=== PATIENT | male | born 1960 | race Caucasian/White ===

== ENCOUNTER 2018-04-08 08:52 | Inpatient (IN) | payer BC ==
--- NOTE | 2018-04-08 09:18 | PDOC ---
History of Present Illness - General Chief Complaint: Revisit, Lab Variance Stated Complaint: LAB VARIANCE History Source: Patient - History of Present Illness Timing/Duration: reports: resolved prior to arrival Past History - Past Medical History Allergies/Adverse Reactions: Allergies Allergy/AdvReac Type Severity Reaction Status Date / Time No Known Allergies Allergy Verified 04/08/18 09:03 Home Medications: Ambulatory Orders Atorvastatin Ca [Lipitor] 10 mg PO HS 04/08/18 Omeprazole Magnesium [Prilosec Otc] 20 mg PO DAILY 04/08/18 COPD: No GI Disorders: Yes (GERD) Hypercholesterolemia: Yes - Immunization History Immunization Up to Date: Yes - Suicide/Smoking/Psychosocial Hx Smoking History: Never smoked Hx Alcohol Use: No Drug/Substance Use Hx: No Review of Systems - Review of Systems Constitutional: No: Chills, Fever, Unintentional Wgt. Loss ABD/GI: No: Abdominal Distended, Blood Streaked Bowels, Nausea, Rectal Bleeding , Vomiting, Abdominal cramping, Tarry Stools : No: Dysuria, Flank Pain, Hematuria *Physical Exam - Vital Signs Last Vital Signs Temp Pulse Resp BP Pulse Ox 98.2 F 74 16 136/88 97 04/08/18 09:00 04/08/18 09:00 04/08/18 09:00 04/08/18 09:00 04/08/18 09:00 - Physical Exam General Appearance: Yes: Appropriately Dressed. No: Apparent Distress HEENT: positive: Normal Voice. negative: Scleral Icterus (R), Scleral Icterus ( L) Gastrointestinal/Abdominal: positive: Normal Bowel Sounds, Soft. negative: Tender, Distended, Guarding, Rebound, Hepatomegaly, Spleenomegaly Musculoskeletal: negative: CVA Tenderness Integumentary: positive: Dry, Warm Neurologic: positive: Fully Oriented, Alert, Normal Mood/Affect Moderate Sedation - Procedure Monitoring Vital Signs: Procedure Monitoring Vital Signs Temperature 98.2 F 04/08/18 09:00 Pulse Rate 74 04/08/18 09:00 Respiratory Rate 16 04/08/18 09:00 Blood Pressure 136/88 04/08/18 09:00 O2 Sat by Pulse Oximetry (%) 97 04/08/18 09:00 ED Treatment Course - LABORATORY CBC & Chemistry Diagram: 04/08/18 09:35 04/08/18 09:35 Medical Decision Making - Medical Decision Making 04/08/18 09:13 58 yo M, h/o HLD on lipitor, GERD on prilosec daily, here for evaluation after pt received a call from that his LFTs were abnl. Pt states he developed worsening of his epigastric pain w/ intermittent n/v and was seen 3 times at an . States the first time he was told to take mylanta and increased prilosec dose (dose previously decreased by PMD). States nausea still persisted and felt dehydrated 2/2 decreased po intake so returned to where he was given IVF, antiemetic and tx for UTI, currently on abx (does not remember name-only c/o urinary freq, since improved). Pt returned to 2 days ago for a "check up" and had labs drawn. States he received email this am that he had some abnl LFTs. Pt states last EGD was >15 years ago and was normal. Denies melena or BRBPR. No known liver disease and no unexplained weight loss. Does admit to excessive drinking in past where he felt " a need to cut down". Occasionally drinks now per pt. pt resides in [place], in [place] for the holidays See exam Ab/nl LFTs in setting of upper abd pain in pt w/ possible h/o ETOH abuse, GERD Per records, ALT 268, AST 163, bili 4.4, alk phos 153 and lipase 109 at 2 days ago On prilosec, no sxs currently No unexplained weight loss Stable w/ unremarkable exam today -labs and possible US vs CT 04/08/18 13:38 CT read as possible acute matilda, will get US at this time. Pt remains asx 04/08/18 16:19 US read as multiple gallstones w/ GBW thickness, otherwise no e/o acute matilda. LFTs mildly elevated w/ Tbili of 1.5. Case d/w Dr Allen of surgery who suspects cholodocholiathises. Rec admission for GI c/s for MRCP and ERCP. MD to come see pt 04/08/18 17:06 Case d/w Dr Amaya, will come evaluate pt. Aware MRCP pending 04/08/18 17:[address] Amaya of GI who rec HIDA scan over MRCP *DC/Admit/Observation/Transfer Diagnosis at time of Disposition: Common bile duct calculus - Discharge Dispostion Condition at time of disposition: Fair Decision to Admit order: Yes - Referrals - Patient Instructions - Post Discharge Activity
--- NOTE | 2018-04-08 09:44 | PDOC ---
*Physical Exam - Vital Signs Last Vital Signs Temp Pulse Resp BP Pulse Ox 98.2 F 74 16 136/88 97 04/08/18 09:00 04/08/18 09:00 04/08/18 09:00 04/08/18 09:00 04/08/18 09:00 ED Treatment Course - LABORATORY CBC & Chemistry Diagram: 04/09/18 06:00 04/09/18 06:00 Medical Decision Making - Medical Decision Making 04/08/18 09:43 Pt seen by Midlevel Provider under my direct supervision Pt presents with LFT abnormality and upper abdominal pain Ancillary studies reviewed - concerning for choledocolithiasis Laboratory Tests 04/08/18 09:35 Total Bilirubin 1.5 H AST 80 H ALT 236 H Lipase [address] Allen I agree with plan as outlined by Midlevel Provider to admit 04/08/18 10:56 04/08/18 10:57 *DC/Admit/Observation/Transfer Diagnosis at time of Disposition: Common bile duct calculus - Discharge Dispostion Condition at time of disposition: Fair - Referrals - Patient Instructions - Post Discharge Activity
[2018-04-08 09:50] LABS: BASO % 0.6 % (0-2.0); EOS % 6.6 % (0-4.5); HEMATOCRIT 38.7 % (35.4-49); HEMOGLOBIN 12.8 GM/dL (11.7-16.9); LYMPH % 13.1 % (8-40); MCH 28.5 pg (25.7-33.7); MEAN CELL VOLUME 86.2 fl (80-96); MEAN PLT VOLUME 7.5 fl (7.5-11.1); MONO % 11.2 % (3.8-10.2); NEUT % 68.5 % (42.8-82.8); PLATELET COUNT 254 K/MM3 (134-434); RBC 4.48 M/mm3 (4.00-5.60); RDW 14.3 % (11.9-15.9); WHITE BLOOD COUNT 6.3 K/mm3 (4.0-10.0)
[2018-04-08 09:58] LABS: URINE APPEARANCE CLEAR; URINE BILIRUBIN NEGATIVE (<2.0 mg/dL); URINE COLOR AMBER; URINE GLUCOSE (UA) NEGATIVE (NEGATIVE); URINE KETONE NEGATIVE (NEGATIVE); URINE LEUK ESTERASE NEGATIVE (NEGATIVE); URINE NITRITE NEGATIVE (NEGATIVE); URINE PROTEIN 1+ (NEGATIVE); URINE UROBILINOGEN NEGATIVE mg/dL (0.2-1.0)
[2018-04-08 10:23] LABS: ALBUMIN 3.6 g/dl (3.4-5.0); ALK PHOS 215 U/L (45-117); ANION GAP 6 MMOL/L (8-16); BILIRUBIN,TOTAL 1.5 mg/dL (0.2-1); BLOOD UREA NITROGEN 4 mg/dL (7-18); CALCIUM 8.3 mg/dL (8.5-10.1); CHLORIDE 105 mmol/L (98-107); CO2 28 mmol/L (21-32); CREATININE 0.8 mg/dL (0.55-1.3); GLUCOSE,RANDOM 97 mg/dL (74-106); LIPASE 428 U/L (73-393); POTASSIUM 4.1 mmol/L (3.5-5.1); SGOT/AST 80 U/L (15-37); SGPT/ALT 236 U/L (13-61); SODIUM 139 mmol/L (136-145); TOT PROT 7.1 g/dl (6.4-8.2)
[2018-04-08 10:24] LABS: URINE MUCUS FEW
--- NOTE | 2018-04-08 16:08 | CONSULT ---
Consult Consult Specialty:: General Surgery Reason for Consultation:: Cholelithiasis, R/o Choledocholithiasis, passed a stone - History of Present Illness Chief Complaint: abdominal pain History of Present Illness: 58yo male PMH HLD on lipitor, GERD presents for evaluation at the urging of urgent care provider. Mr. Fitzpatrick reports epigastric discomfort starting 03/29 which was worse at nights, while on vacation in [place]. He atrributed symptoms to GERD and increased his dose of prilosec, which had little effect on relieving his sx. On 04/02, he returned to [facility] and noted that his symptoms had progressed where his pain now 10/10 and he was unable to sleep. He went to [facility] and was told to take mylanta TID in addition to his increased dose of PPI. Patient went hiking on 04/04 and reports his pain became so severe, "he thought he was dying". He endorses b/l flank pain and abd pain. He once again sought evaluation at urgent care and at this visit His urine was sampled at the same visit and he was informed that he had a UTI and was prescribed cipro 500mg BID x 1week, in addition to routine labs being drawn. we were asked to evaluate. - History Source History Provided By: Patient, Medical Record Limitations to Obtaining History: No Limitations - Alcohol/Substance Use Hx Alcohol Use: No - Smoking History Smoking history: Never smoked - Social History ADL: Independent Place of : [facility] Home Medications - Allergies Allergies/Adverse Reactions: Allergies Allergy/AdvReac Type Severity Reaction Status Date / Time No Known Allergies Allergy Verified 04/08/18 09:03 - Home Medications Home Medications: Ambulatory Orders Atorvastatin Ca [Lipitor] 10 mg PO HS 04/08/18 Omeprazole Magnesium [Prilosec Otc] 20 mg PO DAILY 04/08/18 Review of Systems - Review of Systems Constitutional: denies: Chills, Fever Eyes: denies: Blurred Vision, Recent Change in Vision HENT: denies: Difficult Swallowing, Throat Pain Neck: denies: Pain on Movement, Tenderness Cardiovascular: denies: Chest Pain, Palpitations Respiratory: denies: Cough, SOB Gastrointestinal: reports: Abdominal Pain. denies: Constipation, Diarrhea Genitourinary: denies: Dysuria, Flank Pain Breasts: reports: No Symptoms Reported. denies: Pain Musculoskeletal: denies: Muscle Pain, Muscle Weakness Integumentary: denies: Eczema, Pallor, Rash Neurological: denies: Seizure, Syncope Endocrine: denies: Unexplained Weight Gain, Unexplained Weight Loss Hematology/Lymphatic: denies: Easily Bruised, Excessive Bleeding Psychiatric: denies: Anxiety, Depression Physical Exam Vital Signs: Vital Signs Temperature 98.2 F 04/08/18 09:00 Pulse Rate 74 04/08/18 09:00 Respiratory Rate 16 04/08/18 09:00 Blood Pressure 136/88 04/08/18 09:00 O2 Sat by Pulse Oximetry (%) 97 04/08/18 09:00 Vital Signs Period Temp Pulse Resp BP Sys/Murdock Pulse Ox Last 24 Hr 98.4 F-98.9 F 55-67 16-20 118-133/72-88 98-98 Constitutional: Yes: Well Nourished, No Distress, Calm Eyes: Yes: Conjunctiva Clear, EOM Intact HENT: Yes: Atraumatic, Normocephalic Neck: Yes: Supple, Trachea Midline Cardiovascular: Yes: S1, S2 Respiratory: Yes: Regular, CTA Bilaterally Gastrointestinal: Yes: Normal Bowel Sounds, Soft, Tenderness. No: Tenderness, Epigastrium, Tenderness, Rebound ...Rectal Exam: Yes: Sphincter Tone Normal. No: Mass Renal/: No: CVA Tenderness - Left, CVA Tenderness - Right Musculoskeletal: No: Muscle Pain, Muscle Weakness Extremities: No: Cool, Cyanosis Edema: No Peripheral Pulses WNL: Yes Integumentary: No: Jaundice, Pressure Ulcer Neurological: Yes: Alert, Oriented Psychiatric: Yes: Alert, Oriented Labs: CBC, BMP 04/08/18 09:35 04/08/18 09:35 Imaging - Results Cat Scan: Report Reviewed, Image Reviewed (cholelithiais and gallbladder polyps) Ultrasound: Report Reviewed, Image Reviewed (GB wall thickening) MRI: Pending Other: Report Reviewed, Image Reviewed (HIDA positive no filling) Problem List - Problems (1) Acute gallstone pancreatitis Assessment/Plan: 58yo male with acute gallstone pancreatitis, cholelithiaasis, choledocholithiasis probably passsed a stone NPO and IVF hydration IV antibiotics Trend labs MRCP GI evaluation for ERCP Medical clearence for surgery Laparoscopic cholecystctetomy 04/10/18 Discussed with patient risks, benefits and alternatives of laparoscopic possible open cholecystectomy, including but not limited to bleeding, infection , injury to adjacent structures, leak or injury, intraabdominal abscess, incisional hernia, need for further procedures, ; alternatives include antibiotics, delayed or no surgery - risks of this include failure of nonoperative therapy, perforation, sepsis, recurrence, . Patient desires to proceed with operation - will take to OR for above. Informed consent signed for same. Thank you for the opportunity to participate in the care of this patient. Code(s): K85.10 - BILIARY ACUTE PANCREATITIS WITHOUT NECROSIS OR INFECTION (2) Cholelithiasis Code(s): K80.20 - CALCULUS OF GALLBLADDER W/O CHOLECYSTITIS W/O OBSTRUCTION Qualifiers: Cholelithiasis location: gallbladder Cholecystitis presence: without cholecystitis Biliary obstruction: without biliary obstruction Qualified Code(s): K80.20 - Calculus of gallbladder without cholecystitis without obstruction (3) Choledocholithiasis Code(s): K80.50 - CALCULUS OF BILE DUCT W/O CHOLANGITIS OR CHOLECYST W/O OBST (4) Abdominal pain in male Code(s): R10.9 - UNSPECIFIED ABDOMINAL PAIN (5) Common bile duct calculus Code(s): K80.50 - CALCULUS OF BILE DUCT W/O CHOLANGITIS OR CHOLECYST W/O OBST
[2018-04-08] MEDS ORDERED: SODIUM CHLORIDE 1,000 ML IV STA (17:55)
--- NOTE | 2018-04-08 19:45 | CONS ---
DATE OF CONSULTATION: 04/08/2018 The patient is a 58-year-old man with a past medical history of hyperlipidemia and reflux disease on PPI therapy who is originally from [place] and is in town visiting who states that over the past week he has been having intermittent dyspeptic symptoms with epigastric-associated pain. He attributed his symptoms secondary to his reflux disease. His symptoms did not improve on Mylanta and Prilosec. He was seen at the urgent care center and labs were taken as well as a UA. He received antibiotics for a urinary tract infection and was called back for abnormal liver tests. He, therefore, came to the emergency room for further evaluation. He had an upper endoscopy over 15 years ago and states there were no findings of any ulcers. He currently denies any nausea, vomiting, hematemesis, melena, hematochezia, or weight loss. PAST MEDICAL HISTORY: As listed in the HPI. ALLERGIES: No known drug allergies. SOCIAL HISTORY: Does not drink or smoke. FAMILY HISTORY: No history of GI or gynecological malignancy. SURGICAL HISTORY: Notable for multiple orthopedic surgeries including rotator cuff repair and a hip replacement. PHYSICAL EXAMINATION: Vital Signs: Temperature 98, pulse 74, respiratory rate 12, blood pressure 130/88, pulse oximetry 97% on room air. General: No acute distress. HEENT: Anicteric sclerae. Cardiovascular: S1, S2. Regular rate and rhythm. Lungs: Bilaterally clear to auscultation. Abdomen: Tender in the epigastric area and right upper quadrant without rebound or guarding. There was no positive Linares's sign. Extremities: No edema. LABORATORY: White blood cell count is 6.3, hemoglobin 12, hematocrit 38, MCV 86, platelet count 254. Sodium 139, potassium 4.1, BUN of 4, creatinine 0.8. Total bilirubin is 1.5, AST 80, ALT 236, alkaline phosphatase of 215, lipase of 428. Urine has 1+ protein and 1% blood, otherwise negative. He had an ultrasound performed in the emergency room, which revealed thick walled gallbladder with small calculi and a 4-mm polyp. No sonographic evidence of acute cholecystitis. HIDA scan was suggested. IMPRESSION: Dyspepsia, right upper quadrant abdominal pain, thickening of the gallbladder wall, and a mild transaminitis. These findings may be secondary to acute cholecystitis. He may or may not have choledocholithiasis. I would expect his ALT to be over 500, if in fact he did have an obstructing stone. He may, however, have passed a small stone. Also contributing to his current liver enzymes, may be the recent antibiotic use or chronic and inherited liver disease. RECOMMENDATION: N.P.O., IV fluids. Would start him empirically on Levaquin and Flagyl therapy. HIDA scan to rule out cholecystitis and choledocholithiasis. I would also order an acute hepatitis panel, hepatitis A, hepatitis B, and hepatitis C viral profile, IFEANYI, smooth muscle antibody, alpha-1 antitrypsin, transliver test while hospitalized. Surgery followup. Further recommendations pending HIDA scan results regarding if an ERCP is or is not needed. This patient will be followed by the GI service. DO EDMOND CIFUENTES/[id number]
[2018-04-08] MEDS ORDERED: IBUPROFEN 400 MG TABLET (FP) PO PRN (21:23)
[2018-04-08] MEDS ORDERED: ATORVASTATIN CA 10 MG TABLET (FP) PO SCH (22:00)
[2018-04-09] MEDS: LACTATED RINGERS SOLUTION 1,000 ML IV SCH (00:26)
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
[2018-04-09] MEDS: SENNOSIDES 8.6MG TABLET (FP) PO SCH ×3 (00:37→21:44)
[2018-04-09] MEDS: DOCUSATE SODIUM 100 MG CAPSULE (FP) PO SCH ×5 (00:37→21:43)
[2018-04-09] MEDS ORDERED: PIPERACILLIN/TAZOBACTAM 4.5 GM VIAL IVPB ONE ×2 (03:32→14:13)
[2018-04-09] MEDS ORDERED: DEXTROSE 5%-WATER 100 ML IVPB ONE ×2 (03:32→14:13)
[2018-04-09] MEDS: SODIUM CHLORIDE 1,000 ML IV SCH ×2 (03:36→17:25)
[2018-04-09] MEDS: PIPERACILLIN/TAZOB 4.5 GM 4.5 GM in DEXTROSE 5%-WATER 100 ML IVPB SCH ×3 (03:38→17:20)
[2018-04-09 04:15] VITALS: BMI 25.4
[2018-04-09 07:42] LABS: HEMATOCRIT 35.1 % (35.4-49); HEMOGLOBIN 11.6 GM/dL (11.7-16.9); MCH 28.3 pg (25.7-33.7); MCHC 33.1 g/dl (32.0-35.9); MEAN CELL VOLUME 85.7 fl (80-96); MEAN PLT VOLUME 7.7 fl (7.5-11.1); PLATELET COUNT 231 K/MM3 (134-434); RDW 14.2 % (11.9-15.9); WHITE BLOOD COUNT 5.3 K/mm3 (4.0-10.0)
[2018-04-09 08:08] LABS: INR 0.95 (0.83-1.09); PROTHROMBIN TIME (PATIENT) 11.2 SEC (9.7-13.0)
[2018-04-09 08:11] LABS: ACTIVATED PTT 27.8 SECONDS (25.2-36.5)
[2018-04-09 08:16] LABS: AMYLASE 49 U/L (25-115); MAGNESIUM 2.4 mg/dL (1.8-2.4); PHOSPHOROUS 4.7 mg/dL (2.5-4.9)
[2018-04-09 09:16] LABS: ALK PHOS 166 U/L (45-117); ANION GAP 7 MMOL/L (8-16); BILIRUBIN,TOTAL 1.2 mg/dL (0.2-1); BLOOD UREA NITROGEN 9 mg/dL (7-18); CALCIUM 7.9 mg/dL (8.5-10.1); CHLORIDE 108 mmol/L (98-107); CO2 26 mmol/L (21-32); CREATININE 0.6 mg/dL (0.55-1.3); GLUCOSE,RANDOM 69 mg/dL (74-106); LIPASE 396 U/L (73-393); POTASSIUM 4.1 mmol/L (3.5-5.1); SGOT/AST 79 U/L (15-37); SGPT/ALT 200 U/L (13-61); SODIUM 140 mmol/L (136-145); TOT PROT 5.9 g/dl (6.4-8.2)
[2018-04-09] MEDS ORDERED: PANTOPRAZOLE 20 MG TABLET (FP) PO SCH (10:00)
[2018-04-09] MEDS ORDERED: FLU VACCINE QUAD 60 MCG/0.5 ML (MDV 18-19) IM ONE (10:00)
--- NOTE | 2018-04-09 11:13 | PN ---
GI Progress Note Subjective: Patient found sitting in bed Denies abdominal pain as the reason for his ER visit. States that he has felt weak and has had a cough for 1 month HIDA not officically read but it appears as though the GB fills and there is tracer in the small bowel - Objective Vital Signs: Vital Signs Temperature 98.9 F 04/09/18 04:03 Pulse Rate 67 04/09/18 04:03 Respiratory Rate 18 04/09/18 04:03 Blood Pressure 133/76 04/09/18 04:03 O2 Sat by Pulse Oximetry (%) 98 04/09/18 04:03 Constitutional: Calm Eyes: No: Sclera Icterus Cardiovascular: Yes: Regular Rate and Rhythm. No: Murmur Respiratory: Yes: Rhonchi (right lung base) Gastrointestinal Inspection: No: Scars ...Auscultate: Yes: Normoactive Bowel Sounds ...Palpate: No: Hepatomegaly, Splenomegaly, Tenderness Edema: No (No LE edema) Neurological: Yes: Alert Labs: CBC, BMP 04/09/18 06:00 04/09/18 06:00 INR, PTT INR 0.95 (0.83-1.09) 04/09/18 06:00 - ....Imaging Ultrasound: Report Reviewed (thick walled GB with small calculi and 4mm polyp. No evidence of acute cholecystitis. No ductal dilatation) Problem List - Problems (1) Abnormal liver function tests Assessment/Plan: Clinically asymptomatic Main complaint is fatigue, generalized malaise and cough for 1 month Rhonchi noted in RLL field on exam. A reactive etiology of the LFT abnormality would need to be considered in the differential Advise: Follow-up official HIDA scan: it appears negative MRCP ordered to further evaluate biliary tract Ordered CXR PA/Lat and consulted ID. ? if legionella needs to be excluded as well Surgical follow-up: with both calculi and polyp present in the gallbladder and if current clinical course does not call for cholecystectomy prior to discharge , consideration could for elective cholecystectomy could be considered. Monitor LFTs Avoid hepatotoxic agents Code(s): R94.5 - ABNORMAL RESULTS OF LIVER FUNCTION STUDIES
--- NOTE | 2018-04-09 12:29 | PN ---
Physical Exam: SUBJECTIVE: Pt not seen. Gone doen for HIDA scan OBJECTIVE: Vital Signs Period Temp Pulse Resp BP Sys/Murdock Pulse Ox Last 24 Hr 98.4 F-98.9 F 64-67 16-18 120-133/76-88 98-98 Vital Signs Temperature 98.9 F 04/09/18 04:03 Pulse Rate 67 04/09/18 04:03 Respiratory Rate 18 04/09/18 04:03 Blood Pressure 133/76 04/09/18 04:03 O2 Sat by Pulse Oximetry (%) 98 04/09/18 04:03 Pt not examined Laboratory Results - last 24 hr 04/09/18 04/09/18 04/09/18 06:00 06:00 06:00 WBC 5.3 RBC 4.10 Hgb 11.6 L Hct 35.1 L MCV 85.7 MCH 28.3 MCHC 33.1 RDW 14.2 Plt Count 231 MPV 7.7 Manual Slide Review Cancelled PT with INR 11.20 INR 0.95 PTT (Actin FS) 27.8 Sodium 140 Potassium 4.1 Chloride 108 H Carbon Dioxide 26 Anion Gap 7 L BUN 9 Creatinine 0.6 Creat Clearance w eGFR > 60 Random Glucose 69 L Calcium 7.9 L Phosphorus 4.7 Magnesium 2.4 Total Bilirubin 1.2 H AST 79 H ALT 200 H Alkaline Phosphatase 166 H Total Protein 5.9 L Albumin 3.0 L Total Amylase 49 Lipase 396 H Blood Type Antibody Screen 04/09/18 06:00 WBC RBC Hgb Hct MCV MCH MCHC RDW Plt Count MPV Manual Slide Review PT with INR INR PTT (Actin FS) Sodium Potassium Chloride Carbon Dioxide Anion Gap BUN Creatinine Creat Clearance w eGFR Random Glucose Calcium Phosphorus Magnesium Total Bilirubin AST ALT Alkaline Phosphatase Total Protein Albumin Total Amylase Lipase Blood Type AB POSITIVE Antibody Screen Negative Active Medications Generic Name Dose Route Start Last Admin Trade Name Freq PRN Reason Stop Dose Admin Docusate Sodium 100 mg 04/08/18 22:00 04/09/18 05:26 Colace - PO Not Given TID JAYE Sodium Chloride 1,000 mls @ 125 mls/hr 04/08/18 17:00 04/09/18 03:36 Normal Saline - IV 125 mls/hr ASDIR JAYE Administration Lactated Ringer's 1,000 mls @ 75 mls/hr 04/08/18 21:30 04/09/18 00:26 Lactated Ringers Solution IV 75 mls/hr ASDIR JAYE Administration Piperacillin Sod/Tazobactam 100 mls @ 200 mls/hr 04/09/18 18:00 Sod 4.5 gm/ Dextrose IVPB Q8H-IV JAYE Protocol Ibuprofen 400 mg 04/08/18 21:23 Motrin - PO Q8H PRN PAIN LEVEL 6-10 Senna 2 tab 04/08/18 22:00 04/09/18 00:37 Senna - PO 2 tab HS JAYE Administration ASSESSMENT/PLAN:
[2018-04-09 13:05] LABS: ACANTHOCYTES 0; ANISOCYTOSIS 0; HELMET CELLS 0; HOWELL-JOLLY BODIES 0; MACROCYTOSIS 0; OVALOCYTE 0; PLATELET ESTIMATE NORMAL; ROULEAU 0; SICKELED CELLS 0; TARGET CELLS 0; TEAR DROP CELLS 0; TOXIC GRANULATION 0
--- NOTE | 2018-04-09 15:00 | PN ---
Progress Note (short form) - Note Progress Note: ID consult dictated imp/reccd 58 yo man here from [place] for vacation, developed midepigastric pain and nausea, seen at [facility]- started on prilosec, pain got severe the next day, [facility] and was given IVF and iv antibiotics, told he had a UTI and was started on Cipro on 04/05 he was [facility] LFTs bilirubin 4.4, ALT 268, AST 163 and advised ER evaluation came to ED yesterday continued midepigastric discomfort nausea has resolved never had fever or dysuria ct scan with fatty liver and thickwalled gallbladder wwith pericholycystic fluid +HIDA scan elevated lipase for MRCP to r/o choledocholithiasis 3 day history of cough since [place] cxray clear suspect cholycystitis, r/o choledocholithiasis gallstone pancreatitis- ?passed stone continue zosyn have asked patient to obtain urine culture result surgical f/u Problem List - Problems (1) Cholecystitis Code(s): K81.9 - CHOLECYSTITIS, UNSPECIFIED (2) Choledocholithiasis Code(s): K80.50 - CALCULUS OF BILE DUCT W/O CHOLANGITIS OR CHOLECYST W/O OBST (3) Acute gallstone pancreatitis Code(s): K85.10 - BILIARY ACUTE PANCREATITIS WITHOUT NECROSIS OR INFECTION
--- NOTE | 2018-04-09 15:34 | CONS ---
DATE OF CONSULTATION: DATE OF DICTATION: 04/09/2018 INFECTIOUS DISEASE CONSULTATION REQUESTING [employer]: Hospitalist Service CONSULTING PHYSICIAN: Mira Reid M.D. HISTORY OF PRESENT ILLNESS: This is a 58-year-old man past medical history of hyperlipidemia, and GERD. He came on the to visit from [place]. Since then, he has been in the [facility] 3 times. He originally presented there with midepigastric pain and was felt to have gastritis and reflux. He was placed on Protonix. He was placed on Prilosec. He then had much worse the next day, had severe abdominal pain accompanied by nausea. He was unable to eat. He went to the emergency room. He said his urine was very dark in the emergency room. He was dehydrated. They gave him fluids. They gave him IV antibiotics. Some IV nausea medicine, and discharged him home, and told him he had a UTI. On the they gave him a prescription for ciprofloxacin 500 b.i.d. for 14 days which he started. He subsequently was recalled on the and was told he had abdominal liver function tests and advised ER evaluation. His liver tests drawn at the [facility] revealed AST of 163, ALT 268, and bilirubin of 4.4. In the ER, his bilirubin was 1.5, ALT at 236, and AST of 80. He had a CAT scan that showed a thick walled gallbladder with pericholecystic fluid and a fatty liver, and he was admitted for further evaluation. Since that time, he has had a HIDA scan which is being read as positive with gallbladder after 2 hours, and he is scheduled for an MRCP. Patient reports feeling better. His nausea has resolved. He has been on Zosyn for the last 24 hours since admission. He still has some residual midepigastric pain. PAST MEDICAL HISTORY: Notable for hyperlipidemia and GERD. SURGICAL HISTORY: He had a left rotator cuff repair, right hip replacement. He has had a right tibia-fibula ORIF and a pelvic fracture. SOCIAL HISTORY: There is no history of cigarette or substance use. He lives in [place] with his and son. 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 He is back at school, and he recently traveled to [place]. ALLERGIES: He has no known drug allergies. MEDICATION: As an outpatient include Lipitor and Prilosec. REVIEW OF SYSTEMS: He notes cough which started after arrival in [place], which he attributed to the weather change. He has had no fevers. PHYSICAL EXAMINATION: VITAL SIGNS: Temperature 98.8, pulse 69, blood pressure 118/72, respiratory rate 20, weight is 82 kg. HEENT: Normocephalic. Eyes are anicteric. NECK: Supple. LUNGS: Clear to auscultation. HEART: Regular rate and rhythm. ABDOMEN: Soft. He has some mid epigastric tenderness to palpation. EXTREMITIES: Without edema. LABORATORY: White count of 5.3, hemoglobin 11.6, platelets 231. BUN and creatinine are 9 and 0.6 with a total bilirubin of 1.2 today, AST of 79, ALT of 200, lipase was 428 on admission and today is 396, and urinalysis is negative. No cultures were sent. His chest x-ray was done and shows no infiltrate. IMPRESSION: In summary, this is a 58-year-old man with what appears to be cholecystitis by evidence of a positive HIDA, possible choledocholithiasis, gallstone pancreatitis, possibly a passed stone given the improvement in his liver function tests. Would continue Zosyn for now. I have asked the patient to obtain urine cultures from the urgicenter and we are awaiting surgical followup. Further recommendations to follow. Henry [id number]
--- NOTE | 2018-04-09 18:57 | PN ---
Physical Exam: SUBJECTIVE: Patient seen and examined. He has no complaints. He feels hungry and denies abdominal pain, nausea. OBJECTIVE: Vital Signs Period Temp Pulse Resp BP Sys/Murdock Pulse Ox Last 24 Hr 98.4 F-98.9 F 55-67 16-20 118-133/72-88 98-98 GENERAL: The patient is awake, alert, and fully oriented, in no acute distress. LUNGS: Breath sounds equal, clear to auscultation bilaterally, no wheezes, no crackles, no accessory muscle use. HEART: Regular rate and rhythm, S1, S2 without murmur, rub or gallop. ABDOMEN: Soft, nontender, nondistended, normoactive bowel sounds, no guarding, no rebound, no hepatosplenomegaly, no masses. EXTREMITIES: 2+ pulses, warm, well-perfused, no edema. Laboratory Results - last 24 hr 04/09/18 04/09/18 04/09/18 06:00 06:00 06:00 WBC 5.3 RBC 4.10 Hgb 11.6 L Hct 35.1 L MCV 85.7 MCH 28.3 MCHC 33.1 RDW 14.2 Plt Count 231 MPV 7.7 Neutrophils % No Result Required. Neutrophils % (Manual) 52.0 Band Neutrophils % 0.0 Lymphocytes % No Result Required. Lymphocytes % (Manual) 28.6 Monocytes % (Manual) 13 H Eosinophils % (Manual) 5.1 H Basophils % (Manual) 0.0 Myelocytes % (Man) 0 Promyelocytes % (Man) 0 Blast Cells % (Manual) 0 Nucleated RBC % 0 Metamyelocytes 0 Manual Slide Review Cancelled Hypochromia 0 Toxic Granulation 0 Dohle Bodies 0 Platelet Estimate Normal Polychromasia 0 Poikilocytosis 0 Basophilic Stippling 0 Anisocytosis 0 Microcytosis 0 Macrocytosis 0 Spherocytes 0 Sickle Cells 0 Target Cells 0 Tear Drop Cells 0 Ovalocytes 0 Stomatocytes 0 Helmet Cells 0 [place]ueroa-[place] Bodies 0 [place] Rings 0 Joleen Cells 0 Acanthocytes (Spur) 0 Rouleaux 0 Fragmented RBCs 0 Schistocytes 0 PT with INR 11.20 INR 0.95 PTT (Actin FS) 27.8 Sodium 140 Potassium 4.1 Chloride 108 H Carbon Dioxide 26 Anion Gap 7 L BUN 9 Creatinine 0.6 Creat Clearance w eGFR > 60 Random Glucose 69 L Calcium 7.9 L Phosphorus 4.7 Magnesium 2.4 Total Bilirubin 1.2 H AST 79 H ALT 200 H Alkaline Phosphatase 166 H Total Protein 5.9 L Albumin 3.0 L Total Amylase 49 Lipase 396 H Blood Type Antibody Screen 04/09/18 04/09/18 06:00 12:28 WBC RBC Hgb Hct MCV MCH MCHC RDW Plt Count MPV Neutrophils % Neutrophils % (Manual) Band Neutrophils % Lymphocytes % Lymphocytes % (Manual) Monocytes % (Manual) Eosinophils % (Manual) Basophils % (Manual) Myelocytes % (Man) Promyelocytes % (Man) Blast Cells % (Manual) Nucleated RBC % Metamyelocytes Manual Slide Review Hypochromia Toxic Granulation Dohle Bodies Platelet Estimate Polychromasia Poikilocytosis Basophilic Stippling Anisocytosis Microcytosis Macrocytosis Spherocytes Sickle Cells Target Cells Tear Drop Cells Ovalocytes Stomatocytes Helmet Cells [place]ueroa-[place] Bodies [place] Rings Joleen Cells Acanthocytes (Spur) Rouleaux Fragmented RBCs Schistocytes PT with INR INR PTT (Actin FS) Sodium Potassium Chloride Carbon Dioxide Anion Gap BUN Creatinine Creat Clearance w eGFR Random Glucose Calcium Phosphorus Magnesium Total Bilirubin AST ALT Alkaline Phosphatase Total Protein Albumin Total Amylase Lipase Blood Type AB POSITIVE AB POSITIVE Antibody Screen Negative Active Medications Generic Name Dose Route Start Last Admin Trade Name Freq PRN Reason Stop Dose Admin Docusate Sodium 100 mg 04/08/18 22:00 04/09/18 14:09 Colace - PO 100 mg TID JAYE Administration Sodium Chloride 1,000 mls @ 125 mls/hr 04/08/18 17:00 04/09/18 17:25 Normal Saline - IV 125 mls/hr ASDIR JAYE Administration Lactated Ringer's 1,000 mls @ 75 mls/hr 04/08/18 21:30 04/09/18 00:26 Lactated Ringers Solution IV 75 mls/hr ASDIR JAYE Administration Piperacillin Sod/Tazobactam 100 mls @ 200 mls/hr 04/09/18 18:00 04/09/18 17: 20 Sod 4.5 gm/ Dextrose IVPB 200 mls/hr Q8H-IV JAYE Administration Protocol Ibuprofen 400 mg 04/08/18 21:23 Motrin - PO Q8H PRN PAIN LEVEL 6-10 Senna 2 tab 04/08/18 22:00 04/09/18 00:37 Senna - PO 2 tab HS JAYE Administration ASSESSMENT/PLAN: This is a 58 year old man with a history of hyperlipidemia, GERD, who presented to the ED with epigastric pain, nausea and vomiting, after he was advised to go by urgent care after he had been found to have abnormal LFTs. 1. Acute cholecystitis with choledocholithiasis and acute gallstone pancreatitis - Continue NPO, IV fluid - Continue Zosyn - Transaminases, alk phos, lipase improving - MRCP ordered - Lap matilda planned for tomorrow 2. Hyperlipidemia - Lipitor held secondary to elevated transaminases 3. GERD Visit type - Emergency Visit Emergency Visit: Yes ED Registration Date: 04/08/18 Care time: The patient presented to the Emergency Department on the above date and was hospitalized for further evaluation of their emergent condition. - New Patient This patient is new to me today: Yes Date on this admission: 04/09/18 - Critical Care Critical Care patient: No - Discharge Referral Referred to [facility] Med [facility].C.: No
[2018-04-10] MEDS ORDERED: PIPERACILLIN/TAZOBACTAM 4.5 GM VIAL IVPB ONE ×3 (01:41→18:17)
[2018-04-10] MEDS ORDERED: DEXTROSE 5%-WATER 100 ML IVPB ONE ×3 (01:42→18:17)
[2018-04-10] MEDS: PIPERACILLIN/TAZOB 4.5 GM 4.5 GM in DEXTROSE 5%-WATER 100 ML IVPB SCH ×3 (01:53→18:46)
[2018-04-10] MEDS: LACTATED RINGERS SOLUTION 1,000 ML IV SCH ×2 (01:53→16:14)
[2018-04-10] MEDS: DOCUSATE SODIUM 100 MG CAPSULE (FP) PO SCH ×3 (06:46→22:02)
[2018-04-10 07:36] LABS: BASO % 0.9 % (0-2.0); HEMATOCRIT 38.1 % (35.4-49); HEMOGLOBIN 12.6 GM/dL (11.7-16.9); LYMPH % 24.7 % (8-40); MCH 28.2 pg (25.7-33.7); MCHC 33.1 g/dl (32.0-35.9); MEAN CELL VOLUME 85.2 fl (80-96); MEAN PLT VOLUME 7.3 fl (7.5-11.1); MONO % 9.6 % (3.8-10.2); NEUT % 56.8 % (42.8-82.8); PLATELET COUNT 259 K/MM3 (134-434); RBC 4.47 M/mm3 (4.00-5.60); RDW 14.1 % (11.9-15.9); WHITE BLOOD COUNT 5.2 K/mm3 (4.0-10.0)
[2018-04-10 07:59] LABS: ALBUMIN 3.6 g/dl (3.4-5.0); ALK PHOS 185 U/L (45-117); ANION GAP 9 MMOL/L (8-16); BILIRUBIN,TOTAL 1.7 mg/dL (0.2-1); BLOOD UREA NITROGEN 9 mg/dL (7-18); CALCIUM 8.7 mg/dL (8.5-10.1); CHLORIDE 104 mmol/L (98-107); CO2 25 mmol/L (21-32); CREATININE 0.8 mg/dL (0.55-1.3); GLUCOSE,RANDOM 80 mg/dL (74-106); MAGNESIUM 2.4 mg/dL (1.8-2.4); PHOSPHOROUS 4.3 mg/dL (2.5-4.9); POTASSIUM 4.5 mmol/L (3.5-5.1); SGOT/AST 90 U/L (15-37); SGPT/ALT 210 U/L (13-61); SODIUM 139 mmol/L (136-145); TOT PROT 7.1 g/dl (6.4-8.2)
[2018-04-10] MEDS ORDERED: ONDANSETRON 4 MG/2 ML VIAL IVPUSH PRN (11:09)
[2018-04-10] MEDS ORDERED: LACTATED RINGERS SOLUTION 1,000 ML IV SCH (11:15)
--- NOTE | 2018-04-10 12:38 | OP ---
Operative Note - Note: Operative Date: 04/10/18 Pre-Operative Diagnosis: cholecystistis acute on chronic Operation: laparoscopic cholecystectomy Findings: large cystic, critical view identified. Post-Operative Diagnosis: Same as Pre-op Surgeon: Demetrio Allen Staff Educator: Reji Sherman Anesthesiologist/BOILERHOUSE MECHANIC: Perry Lloyd Anesthesia: General, Local Specimens Removed: gallbladder Estimated Blood Loss (mls): 5 Fluid Volume Replaced (mls): 500 Operative Report Dictated: Yes
[2018-04-10] MEDS ORDERED: ROCURONIUM BROMIDE 50 MG/5 ML VIAL ONE (12:42)
[2018-04-10] MEDS ORDERED: PROPOFOL 20 ML ONE (12:42)
[2018-04-10] MEDS ORDERED: MIDAZOLAM HCL 2 MG/2 ML SINGLE DOSE VIAL ONE (12:42)
[2018-04-10] MEDS ORDERED: LIDOCAINE HCL/PF 2% SDV 5ML VIAL ONE (12:43)
[2018-04-10] MEDS ORDERED: ceFAZolin SODIUM 1 GM VIAL ONE (12:43)
[2018-04-10] MEDS ORDERED: SODIUM CHLORIDE 0.9% P/F 10 ML VIAL IJ ONE (12:43)
[2018-04-10] MEDS ORDERED: DEXAMETHASONE SOD PHOSPHATE 4 MG/1 ML VIAL ONE (12:43)
[2018-04-10] MEDS ORDERED: ePHEDrine SULFATE 50 MG/1 ML AMPULE ONE (13:16)
[2018-04-10] MEDS ORDERED: KETAMINE HCL 200 MG/20 ML VIAL ONE (13:19)
[2018-04-10] MEDS ORDERED: GLYCOPYRROLATE 0.2 MG/1 ML VIAL ONE (13:51)
[2018-04-10] MEDS ORDERED: NEOSTIGMINE METHYLSULFATE 0.5 MG/ML - 10 ML MDV ONE (13:51)
[2018-04-10] MEDS ORDERED: KETOROLAC TROMETHAMINE 30 MG/1 ML VIAL ONE (13:51)
[2018-04-10] MEDS ORDERED: BUPIVACAINE HCL/PF 0.5% (5MG/ML) 10 ML VIAL ONE (13:51)
[2018-04-10] MEDS ORDERED: BUPIVACAINE HCL/PF (5 MG/ML) 30 ML VIAL IJ ONE ×2 (14:04)
[2018-04-10] MEDS ORDERED: IBUPROFEN 600 MG TABLET (FP) PO PRN ×2 (14:16→15:06)
[2018-04-10] MEDS ORDERED: morphine SULFATE 4 MG/ML VIAL IVPUSH PRN (14:16)
[2018-04-10] MEDS ORDERED: ACETAMINOPHEN 325 MG TABLET (FP) PO PRN ×2 (14:16→15:06)
[2018-04-10] MEDS ORDERED: ONDANSETRON 4 MG/2 ML VIAL IVPB PRN ×2 (14:17→15:06)
[2018-04-10] MEDS ORDERED: MORPHINE SULFATE 2 MG/ML VIAL IVPUSH PRN (15:06)
[2018-04-10] MEDS ORDERED: SODIUM CHLORIDE 1,000 ML IV SCH (15:06)
--- NOTE | 2018-04-10 16:53 | PN ---
Progress Note (short form) - Note Progress Note: s/p lap choly today back in his room no complaints Vital Signs Period Temp Pulse Resp BP Sys/Murdock Pulse Ox Last 24 Hr 97.8 F-98.9 F 54-67 14-20 117-137/69-95 91-98 cor-rrr lungs clear CBC, BMP 04/10/18 06:30 04/10/18 06:30 a/p s/p lap choly antibioitcs per surgery no UTI- patient spoke with ur[facility]enter please call back if needed Problem List - Problems (1) Cholecystitis Code(s): K81.9 - CHOLECYSTITIS, UNSPECIFIED (2) Choledocholithiasis Code(s): K80.50 - CALCULUS OF BILE DUCT W/O CHOLANGITIS OR CHOLECYST W/O OBST (3) Acute gallstone pancreatitis Code(s): K85.10 - BILIARY ACUTE PANCREATITIS WITHOUT NECROSIS OR INFECTION
[2018-04-10] MEDS ORDERED: PIPERACILLIN/TAZOB 4.5 GM 4.5 GM in DEXTROSE 5%-WATER 100 ML IVPB SCH (18:00)
[2018-04-10] MEDS ORDERED: SENNOSIDES 8.6MG TABLET (FP) PO SCH (22:00)
[2018-04-11] MEDS ORDERED: DEXTROSE 5%-WATER 100 ML IVPB ONE ×2 (01:29→10:27)
[2018-04-11] MEDS ORDERED: PIPERACILLIN/TAZOBACTAM 4.5 GM VIAL IVPB ONE ×2 (01:29→10:27)
[2018-04-11] MEDS: PIPERACILLIN/TAZOB 4.5 GM 4.5 GM in DEXTROSE 5%-WATER 100 ML IVPB SCH ×3 (02:02→18:07)
[2018-04-11] MEDS: DOCUSATE SODIUM 100 MG CAPSULE (FP) PO SCH ×3 (06:23→14:15)
[2018-04-11] MEDS: LACTATED RINGERS SOLUTION 1,000 ML IV SCH (06:56)
--- NOTE | 2018-04-11 08:56 | PN ---
Progress Note, Physician - Current Medication List Current Medications: Active Medications Acetaminophen (Tylenol -) 650 mg PO Q6H PRN PRN Reason: PAIN LEVEL 1-5 Docusate Sodium (Colace -) 100 mg PO TID [facility] Last Admin: 04/11/18 06:57 Dose: 100 mg Lactated Ringer's (Lactated Ringers Solution) 1,000 mls @ 75 mls/hr IV ASDIR [facility] Last Admin: 04/11/18 06:56 Dose: 75 mls/hr Sodium Chloride (Normal Saline -) 1,000 mls @ 125 mls/hr IV ASDIR [facility] Last Admin: 04/10/18 16:14 Dose: Not Given Piperacillin Sod/Tazobactam (Sod 4.5 gm/ Dextrose) 100 mls @ 200 mls/hr IVPB Q8H-IV [facility]; Protocol Ibuprofen (Motrin -) 600 mg PO Q6H PRN PRN Reason: PAIN LEVEL 1-5 Morphine Sulfate (Morphine Sulfate) 4 mg IVPUSH Q4H PRN PRN Reason: PAIN LEVEL 6 - 10 Ondansetron HCl (Zofran Injection) 4 mg IVPB Q8H PRN PRN Reason: NAUSEA Senna (Senna -) 2 tab PO HS [facility] Last Admin: 04/10/18 22:02 Dose: 2 tab - Objective Vital Signs: Vital Signs Temperature 98.4 F 04/11/18 08:13 Pulse Rate 70 04/11/18 08:13 Respiratory Rate 18 04/11/18 08:13 Blood Pressure 128/70 04/11/18 08:13 O2 Sat by Pulse Oximetry (%) 94 L 04/10/18 21:00 Constitutional: Yes: Well Nourished, No Distress, Calm Eyes: Yes: WNL, Conjunctiva Clear, EOM Intact HENT: Yes: WNL, Atraumatic, Normocephalic Neck: Yes: WNL, Trachea Midline Cardiovascular: Yes: WNL, Regular Rate and Rhythm Respiratory: Yes: WNL, Regular, CTA Bilaterally Gastrointestinal: Yes: WNL, Normal Bowel Sounds, Soft Labs: CBC, BMP 04/10/18 06:30 04/10/18 06:30 INR, PTT INR 0.95 (0.83-1.09) 04/09/18 06:00 Assessment/Plan This is a 58 year old man with a history of hyperlipidemia, GERD, who presented to the ED with epigastric pain, nausea and vomiting, after he was advised to go by urgent care after he had been found to have abnormal LFTs. D/C home f/u with surgeon
[2018-04-11 15:31] VITALS: BP 126/78; PULSE 74; TEMP 98.3
--- NOTE | 2018-04-12 23:09 | OP ---
DATE OF OPERATION: 04/10/2018 PREOPERATIVE DIAGNOSIS: Utjkg-ny-[id number] cholecystitis. POSTOPERATIVE DIAGNOSIS: Inhgv-wa-cgilvqg cholecystitis. PROCEDURE: Laparoscopic cholecystectomy. ATTENDING SURGEON: Demetrio Allen MD TRACTOR OPERATOR HELPER: Reji Sherman MD BROKERAGE COORDINATOR: Perry Lloyd CRNA ANESTHESIA TYPE: General with local. Local consisted of 0.5% Marcaine, a total of 10 mL given in an inner block fashion at the port sites. ESTIMATED BLOOD LOSS: 5 mL. INTRAVENOUS FLUIDS: 500 mL. SPECIMEN: Gallbladder with stones. BRIEF FINDINGS: Patient had a large cystic gallbladder. The critical view was identified. Hemostasis obtained. All counts were correct postoperatively. INDICATIONS: Patient is a 58-year-old male presenting with a history of right upper quadrant pain that is persistent and had a positive HIDA scan. He was counseled regarding the risks, benefits, and alternatives to surgical laparoscopic cholecystectomy. Signed informed consent was obtained and he was taken for the procedure. DESCRIPTION OF PROCEDURE: The patient was brought to the operating room where he was placed in the supine position on the operating table with the lower extremities having SCDs placed. He was induced with general anesthesia and endotracheally intubated. He received intravenous antibiotics prior to the start of surgery. The last dose was at 9:30 at the morning with Zosyn. His anterior abdominal wall was prepped and draped in the standard surgical fashion. His left arm was extended 90 degrees perpendicular to the body's midline axis at the shoulder. The right arm was tucked. He was appropriately bolstered. A formal timeout was completed, identifying the operative site and procedure. We began first with all parties in agreement with a supraumbilical approach for Adrian entry into the abdomen. This was done with a 15-blade scalpel, deepened and widened through the subcutaneous tissue. Care was taken down to elevate the abdominal wall midline fascia and open it bluntly into the abdomen with clamp and finger to explore the abdominal viscera, which appeared atraumatic. We then passed 0 Vicryl stitch in a [id number] fashion through the fascia of the Adrian entry port and then installed a 10-mm Adrian port. Pneumoperitoneum was established at 15 mmHg, at which point we began first with exploration of the abdomen. The dome of the gallbladder became immediately apparent in the right upper quadrant. Liver appeared atraumatic as well as no nodules noted. There was no adenopathy seen. No implants on any of the serosa of the abdominal viscera. We began then installing additional trocar sites; one at the subxiphoid position and 2 additional in the right abdomen at the subcostal position approximately 2 fingerbreadths below. After these trocars were inserted under direct visualization, we began then to explore the abdomen. The gallbladder was retracted cranially and towards the left shoulder, allowing for adequate exposure of the cystic structures. These structures were dissected with a [place] proximally and distally and a plane was developed to expose the cystic duct and cystic artery. Both were adequately done and the critical view of safety was identified with the liver in the background. We then began to close the cystic structures. The cystic structures were controlled using plastic Weck clips on the cystic duct, which appeared mildly dilated without stones on palpation. The cystic artery was also closed with Weck clips and the cystic structures were then transected and the gallbladder was elevated from the hepatic fossa. The gallbladder, once taken from its fossa with Bovie cautery, was taken in its entirety with stones as well and retrieved from the umbilical port using an EndoCatch bag, 10-mm. This was removed from the abdomen. We then obtained hemostasis using Bovie cautery where necessary on the liver bed. The site was then irrigated copiously with a half-liter of sterile irrigation fluid in the hepatic bed as well as the fossa to remove any additional clots that were remnant. The pneumoperitoneum was relieved under direct visualization. The trocars were removed. The patient then had the umbilical port, the Adrian ablated with the 0 Vicryl in a [id number] fashion and the additional 5-mm ports were closed only at the skin and subcuticular with 4-0 Vicryl. This was done at the umbilical port as well. The skin was cleaned. Sterile dressing of Dermabond was placed. Patient was awoken from general anesthesia having tolerated the procedure well. He was stable throughout. He returned to recovery in stable condition. All counts were correct at the conclusion of the surgery. MD EMILY Abdullahi/[id number]
--- NOTE | 2018-04-14 14:35 | PATH ---
Surgical Pathology Report Patient Name: LAKEISHA RALPH [facility]. Rec. #: [id number] /Age/Gender: 1960 (Age: 58) / M Account: [id number] Location: [address] [place] [address]/[facility] Taken: 04/10/2018 Received: 04/13/2018 Reported: 04/14/2018 Physicians: Henry Abdullahi FNP Specimen(s) Received A: UMBILICAL HERNIA SAC B: GALLBLADDER Clinical History Chronic cholecystitis Final Diagnosis A. UMBILICAL HERNIA SAC, EXCISION: CONSISTENT WITH HERNIA SAC. B. GALLBLADDER, CHOLECYSTECTOMY: ACUTE SUPERIMPOSED ON CHRONIC CHOLECYSTITIS. CHOLELITHIASIS. Electronically Signed Blayne Banegas M.D. Gross Description A. Received in formalin labeled "umbilical hernia sac," is a 3.8 x 1.6 x 1.2 cm portion of yellow, lobulated adipose tissue with attached viera abrrera fibromembranous tissue. Set Up Operator sections are submitted in one cassette. B. Received in formalin, labeled "gallbladder," is a 7.0 x 2.5 x 2.4 cm. gallbladder with a 0.2 cm. in length portion of cystic duct attached. The outer surface is viera-pink and varies from smooth to shaggy. The lumen contains green, sludge-like bile as well as multiple yellow, spherical cholelith averaging 0.4 cm in greatest dimension. The mucosa is viera and focally eroded. The wall of the gallbladder averages 0.3 cm. in thickness. Set Up Operator sections are submitted in one cassette. 04/13/201804/13/2018
== END 2018-04-11 18:30 | disposition home or self-care (01) | DRG 417 ==
LOC: JER 08:52 → JERBED 20:12 → J6S 04-09 03:18
PROVIDERS: ADMIT Internal Medicine; ATTEND Internal Medicine
PROC: 0FT44ZZ Resection of Gallbladder, Percutaneous Endoscopic Approach (ICD-10-PCS; principal; 2018-04-10 13:45)
DX: K80.42 Calculus of bile duct with acute cholecystitis without obstruction (principal); K85.10 Biliary acute pancreatitis without necrosis or infection; R10.9 Unspecified abdominal pain; R94.5 Abnormal results of liver function studies; K21.9 Gastro-esophageal reflux disease without esophagitis; E78.5 Hyperlipidemia, unspecified; Z96.641 Presence of right artificial hip joint
CPT/HCPCS: 36415; 71046-TC-FY; 74177-TC; 74181-TC; 76705-TC; 78226-TC; 80053; 81003; 81015; 82150; 83690; 83735; 84100; 85025; 85610; 85730; 86850; 86900; 86901; 88302-TC; 88304-TC; 90688; 94760; 99282-25; A9537; G0008; J7030